=== PATIENT | male | born 1980 | race Caucasian/White ===

== ENCOUNTER 2020-06-01 21:20 | Emergency (ER) | payer OTHER ==
[2020-06-01] MEDS ORDERED: IPRATROPIUM/ALBUTEROL 0.5-2.5 MG/3 ML AMPUL NEB ONE (21:33)
[2020-06-01] MEDS ORDERED: METHYLPREDNISOLONE INJ 125 MG/2 ML SDV IV ONE (21:33)
[2020-06-01] MEDS: ALBUTEROL SULFATE 0.083% NEB 2.5 MG/3 ML AMPUL NEB SCH ×2 (22:03→22:23)
[2020-06-01] MEDS ORDERED: ALBUTEROL SULFATE HFA (90 MCG/PUFF) 8 GM MDI (1 MDI/ER DISP) IH ONE (22:09)
--- NOTE | 2020-06-01 23:30 | ER Document Report ---
ED General - General Chief Complaint: Shortness Of Breath Stated Complaint: ASTHMA ATTACK Time Seen by Provider: 06/01/20 21:28 Notes: 39-year-old male history of mild intermittent asthma presents with shortness of breath consistent with prior asthma exacerbations. Patient says over the last 3 days he has had gradual onset gradually worsening mild dry cough associated with shortness of breath and wheezing but was unable to take albuterol as he had run out of his inhaler. Patient was waiting for ID to set him feel inhaler with symptoms worsen that he presented to the ED. Patient says symptoms are highly consistent with symptoms that he has had before with numerous asthma exacerbations used. Patient denies any fever, productive cough, hemoptysis, chest pain, cardiac history, PE risk factors, immunocompromise history, recent hospitalizations, recent antibiotics, prior treatment before arrival TRAVEL OUTSIDE OF THE [place] IN LAST 30 DAYS: No - Related Data Allergies/Adverse Reactions: No Known Allergies Allergy (Verified 06/01/20 21:57) Past Medical History - General Information source: Patient - Social History Smoking Status: Former Smoker Frequency of alcohol use: Social Drug Abuse: None Family History: Reviewed & Not Pertinent, Malignancy Pulmonary Medical History: Reports: Hx Asthma Renal/ Medical History: Reports: Hx Benign Prostatic Hyperplasia Psychiatric Medical History: Reports: Hx Depression, Hx Post Traumatic Stress Disorder Past Surgical History: Reports: Hx Tonsillectomy - Immunizations Hx Diphtheria, Pertussis, Tetanus Vaccination: Yes Review of Systems - Review of Systems Notes: REVIEW OF SYSTEMS: CONSTITUTIONAL : Denies fever, chills, or sweats. EENT: Denies recent sinus symptoms, denies throat pain CARDIOVASCULAR: Denies chest pain, KAVITHA RESPIRATORY: +cough, + shortness of breath. GASTROINTESTINAL: Denies abdominal pain, nausea/vomiting. GENITOURINARY: Denies difficulty urinating, painful urination. MUSCULOSKELETAL: Denies neck pain, back pain. SKIN: Denies rash or skin lesions. HEMATOLOGIC : Denies easy bruising or bleeding. LYMPHATIC: Denies swollen, enlarged glands. NEUROLOGICAL: Denies headache, denies change in gait. PSYCHIATRIC: Denies anxiety or stress or depression. Physical Exam - Vital signs Vitals: Pulse Ox 94 06/01/20 21:34 - Notes Notes: PHYSICAL EXAMINATION: GENERAL: Well-appearing, well-nourished and in no acute distress. HEAD: Atraumatic, normocephalic. EYES: Pupils equal round and appropriate constriction, sclera anicteric, conjunctiva are normal. ENT: nares patent, moist mucous membranes. NECK: Normal range of motion, supple without lymphadenopathy LUNGS: Nebulizer being given with lateral filter, mildly tachypneic, normal respiratory effort, no accessory muscle use, expiratory wheezing and decreased air movement diffusely HEART: Borderline tachycardic with regular rhythm, no murmurs rubs or gallops ABDOMEN: Soft, nontender, no guarding, no masses, no CVAT EXTREMITIES: Normal range of motion, no pitting or edema. No cyanosis. NEUROLOGICAL: Awake, alert, conversing appropriately, moves all extremities spontaneously. PSYCH: Normal mood, normal affect. SKIN: Warm, Dry, normal turgor, no rashes or lesions noted. Course - Re-evaluation Re-evalutation: 06/01/20 23:28 Symptoms consistent with asthma exacerbation, possibly secondary to COVID-19 infection but no current indications for admission. Given short duration of symptoms and lack of fever and dry cough and well appearance no indication for x-ray at this time which patient is in agreement with after shared decision making. Patient dramatically improved after initial DuoNeb, repeat exam patient has normal respiratory rate, no wheezing, mildly prolonged expiratory phase and patient expresses relief that he feels "100 times better". No signs of bacterial pneumonia, no PE risk factors, no cardiac symptoms, patient ready for discharge on standing albuterol, prednisone, and PCP follow-up. Patient given extensive return to ED precautions which he demonstrated understanding of - Vital Signs Vital signs: Temp Pulse Resp BP Pulse Ox 97.9 F 95 16 136/79 H 94 06/01/20 23:19 06/01/20 23:19 06/01/20 23:19 06/01/20 23:19 06/01/20 23:19 Discharge - Discharge Clinical Impression: Asthma exacerbation Qualifiers: Asthma severity: unspecified severity Asthma persistence: intermittent Qualified Code(s): J45.21 - Mild intermittent asthma with (acute) exacerbation Disposition: HOME, SELF-CARE Additional Instructions: Asthma You have been diagnosed as having asthma. This is a condition where there is episodic tightness in the bronchial tubes. Allergies, infections, and polluted or cold air may be contributing factors. Emergency treatment of a severe asthma attack may include adrenaline shots, or bronchodilator aerosol. You may feel lightheaded, have a decreased exercise tolerance and a rapid pulse for an hour or two. Rest and get plenty of fluids. Home treatment of asthma requires bronchodilator drugs. These can be administered by injection, inhalation, or by mouth. Antibiotics and corticosteroids may be required for some patients. You should avoid chemical fumes, dusts, pollens, and exercising in very cold or dry air. If you smoke, stop!! If you develop a fever, increased wheezing, chest pain, or severe shortness of breath, you should contact the doctor immediately Patient was provided with discharge information including: As a person under investigation for Covid 19, the [facility], division of public health advises you to adhere to the following guidance until your test results are reported to you. If your test result is positive, you will receive additional information from your provider and your local health department at that time. Remain at home until you are cleared by the health provider or public health authorities. Keep a log of visitors to your home, notify any visitors to your home of your isolation status. If you plan to move to a new address or leave the [facility], notify the local health department in your County. Call your doctor or seek care if you have an urgent medical need. Before seeking medical care, call ahead to get instructions from the provider before arriving at the medical office clinic or hospital. Notify them that you are being tested for the virus that causes Covid 19 so that arrangements can be made, as necessary, to prevent transmission to others in the healthcare setting. Next, notify the local health department in your county. If a medical emergency arises and you need to call 911, inform the first responders that you are being tested for the virus that causes Covid 19. Next, notify the local health department in your county. Take albuterol every 4 hours over the next 5 days. Take all prednisone as prescribed. Follow-up with your primary doctor within 1 week. If you have any worsening shortness of breath, worsening cough, chest pain, dizziness, fainting, confusion, or any other worsening or alarming symptoms return to the emergency department immediately. Prescriptions: Prednisone [Deltasone 20 mg Tablet] 40 mg PO DAILY 4 Days #8 tablet
[2020-06-01 23:32] VITALS: BP 136/79
== END 2020-06-02 00:01 | disposition home or self-care (01) ==
LOC: ER 21:20
DX: J45.21 Mild intermittent asthma with (acute) exacerbation (principal); R06.02 Shortness of breath; Z20.828 Contact with and (suspected) exposure to other viral communicable diseases; Z87.891 Personal history of nicotine dependence
CPT/HCPCS: 99284; 94640; 96374; 87635; J2930; J7613; J3490; C9803